=== PATIENT | male | born 1990 | race Caucasian/White ===

== ENCOUNTER 2022-04-01 19:53 | Emergency (ER) | payer BC, SELFPAY ==
[2022-04-01 20:14] VITALS: BP 135/71; PULSE 85; RESP 18; TEMP 36.7; O2SAT 99; BMI 33.0
[2022-04-01 20:48] LABS: Strep A DNA Probe* NOT DETECTED (Not Detectd)
[2022-04-01 20:55] LABS: Mono Screen* Negative (Negative)
[2022-04-01 21:02] LABS: PCR FLU A Negative PCR FLU A (Negative); PCR FLU B Negative PCR FLU B (Negative)
[2022-04-01 21:09] LABS: SARS PCR* Negative SARS-CoV-2 (Negative)
--- NOTE | 2022-04-01 21:27 | ED_ITS ---
HPI - General Adult General Date Seen: 04/01/22 Chief complaint: Sore Throat Stated complaint: sore throat Time Seen by Provider: 04/01/22 20:43 Source: patient History of Present Illness HPI narrative: Patient is a 31-year-old male with a sore throat that started yesterday. He has a little bit of a headache, no fever, cough, did have some body aches but those resolved. He reports pain with swallowing. He is able to swallow liquids a lthough it is difficult. Wondering about possible strep throat. Related Data Home Medications Medication Instructions Recorded Confirmed No Known Home Medications 04/01/22 04/01/22 Allergies Allergy/AdvReac Type Severity Reaction Status Date / Time No Known Drug Allergies Allergy Verified 04/01/22 20:16 Review of Systems Status of ROS: Reports: 6 or more systems reviewed and unremarkable except as noted in History and below [facility] Medical History No significant past medical history Surgical History No significant past surgical history Social History Smoking Status: Never smoker Do you use any of these nicotine containing products: None Second hand tobacco smoke exposure: No How often do you have a drink containing alcohol: never How often do you have six or more drinks on one occasion: Never AUDIT-C Alcohol total score: 0 Non-prescribed substance use: denies use Exam Narrative: Exam Narrative: Vital signs as noted above. In general, an alert, well-appearing patient. Voice is normal. Head: Normocephalic, atraumatic. Eyes: Pupils are equal reactive. Extraocular movements are full. Conjunctivae are normal. ENT: Mucous membranes are moist. Throat is normal. Tonsils normal, no exudate or edema. No evidence of abscess. Neck: Supple without lymphadenopathy. No stridor. Heart: Regular rate and rhythm. No murmur or rub. Lungs: Clear bilaterally. No increased work of breathing, crackles or wheezes. Neurologic: Patient is alert and oriented to person and place. Speech is fluent. Face is symmetric. Moves all extremities equally. Affect: Normal. Skin: Warm and dry. Well perfused. Const: Vital Signs, click to edit/add: Vital Signs - 24 hr 04/01/22 20:14 Temperature 98.1 F Pulse Rate [Right Pulse Oximeter] 85 Respiratory Rate 18 Blood Pressure [Le ft Upper Arm] 135/71 Pulse Oximetry 99 Oxygen Delivery Me thod Room Air Documenting provider has reviewed patient's vital signs: yes Course Course Hospital Course: Testing ordered before my seeing him including strep, mono, influenza, COVID, are all negative. Discussed better pain management with him, to include ibuprofen 400 mg and Tylenol 1000 mg 3 times daily with food. I think he will feel better on that and then the day cold that he has been taking thus far. Return for worsening such as unilateral worsening pain, high fevers, trismus. Otherwise, anticipate gradual improvement over the coming week. Vital Signs Vital signs: Initial Vital Signs Temperature 98.1 F 04/01/22 20:14 Temperature Source Temporal Artery Scan 04/01/22 20:14 Pulse Rate 85 04/01/22 20:14 Respiratory Rate 18 04/01/22 20:14 Blood Pressure 135/71 04/01/22 20:14 Blood Pressure Mean 92 04/01/22 20:14 Blood Pressure Position Sitting 04/01/22 20:14 Pulse Oximetry 99 04/01/22 20:14 Oxygen Delivery Method 04/01/22 20:14 Vital Signs Temperature 98.1 F 04/01/22 20:14 Pulse Rate 85 04/01/22 20:14 Respiratory Rate 18 04/01/22 20:14 Blood Pressure 135/71 04/01/22 20:14 Pulse Oximetry 99 04/01/22 20:14 Oxygen Delivery Method 04/01/22 20:14 Temperature 98.1 F 04/01/22 20:14 Pulse Rate 85 04/01/22 20:14 Respiratory Rate 18 04/01/22 20:14 Blood Pressure 135/71 04/01/22 20:14 Pulse Oximetry 99 04/01/22 20:14 Oxygen Delivery Method 04/01/22 20:14 Medical Decision Making Lab Data Labs: Lab Results 04/01/22 04/01/22 04/01/22 Range/Units 20:12 20:12 20:41 SARS-CoV-2 (PCR) Negative SARS-CoV-2 (Negative) Monoscreen Negative (Negative) Influenza Type A (PCR) Negative PCR FLU A (Negative) Influenza Type B (PCR) Negative PCR FLU B (Negative) Group A Strep DNA NOT DETECTED (Not Detectd) Discharge Plan Discharge Clinical Impression: Pharyngitis Patient Disposition: Home, Self-Care Condition: Stable Instructions: Pharyngitis (ED) Additional Instructions: Ibuprofen 400 mg plus Tylenol 1000 mg 3 times daily with food to help sympto matically with throat pain. If you are getting worse instead of better over the next several days, developed high fevers, pain that is worsening on 1 side or the other, inability to open your mouth, you should be seen again. Anticipate gradual improvement over the next week. Prescriptions: No Action No Known Home Medications Stand Alone Forms: [employer] Info Instructions
[2022-04-01 21:48] VITALS: BP 135/71; PULSE 85; RESP 18; TEMP 36.7
[2022-04-01 21:49] VITALS: BP 128/74; PULSE 79; RESP 18; TEMP 36.9; O2SAT 99
== END 2022-04-01 21:48 | disposition home or self-care (01) ==
PROVIDERS: Family Medicine; Emergency Provider Emergency Medicine
DX: J02.9 Acute pharyngitis, unspecified (principal); R51.9 Headache, unspecified; Z20.822 Contact with and (suspected) exposure to COVID-19
CPT/HCPCS: 36415; 86308; 87631; 87651; 99282; 99283; 99284